=== PATIENT | male | born 1945 | race Two or more races ===

== ENCOUNTER 2023-09-07 11:44 | Emergency (ER) | payer OTHER ==
[~2023-09-07] VITALS: Ht 177.8 cm; Wt 75.7 kg
[2023-09-07 12:20] VITALS: TEMP 97.6
[2023-09-07 13:35] LABS: BASOPHILS # (AUTO) 0.1 K/uL (0.0-0.2); BASOPHILS % (AUTO) 0.8 % (0.0-2.0); EOSINOPHILS # (AUTO) 0.1 K/uL (0.0-0.7); EOSINOPHILS % (AUTO) 1.2 % (0.0-6.0); HEMATOCRIT 28 % (39-51); HEMOGLOBIN 9.7 g/dL (13.5-17.5); LYMPHOCYTES # (AUTO) 0.8 K/uL (0.8-4.8); LYMPHOCYTES % (AUTO) 12.8 % (20.0-44.0); MEAN CORPUSCULAR HEMOGLOBIN 37 PG (26.0-33.0); MEAN CORPUSCULAR HGB CONC 35 g/dl (31.0-36.0); MEAN CORPUSCULAR VOLUME 105 fL (80-96); MONOCYTES # (AUTO) 0.3 K/uL (0.1-1.30); MONOCYTES % (AUTO) 5.1 % (2.0-12.0); NEUTROPHILS % (AUTO) 80.1 % (43.0-81.0); PLATELET COUNT (AUTO) 243 K/uL (150-450); RED BLOOD CELL COUNT(AUTO) 2.66 MIL/uL (4.5-6.0); RED CELL DISTRIBUTION WIDTH 13.8 % (11.5-15.0); WHITE BLOOD COUNT (AUTO) 6.3 K/uL (4.3-11.0)
[2023-09-07 14:00] LABS: APPEARANCE,URINE Clear (CLEAR); BILIRUBIN,URINE SMALL (NEGATIVE); BLOOD, URINE Trace-intact Ery/uL (NEGATIVE); COLOR,URINE YELLOW (YELLOW); KETONES,URINE 15 mg/dL (NEGATIVE); LEUKOCYTE ESTERASE ,URINE Negative (NEGATIVE); NITRITE, URINE Negative (NEGATIVE); PROTEIN,URINE Negative (NEGATIVE); UGLUCOSE Negative (NEGATIVE); UROBILINOGEN,URINE 0.2 EU/dL (0.2)
[2023-09-07 14:02] LABS: CALCIUM, SERUM 9.1 mg/dL (8.5-10.1); CARBON DIOXIDE 28 mmol/L (21-32); CHLORIDE 106 mmol/L (98-107); CREATININE 0.9 mg/dL (0.6-1.3); GLUCOSE 97 mg/dL (74-106); SODIUM SERUM 142 mmol/L (136-145); UREA NITROGEN, BLOOD 22 mg/dL (7-18)
[2023-09-07 14:09] LABS: ALANINE AMINOTRANSFERASE 15 U/L (12-78); ALBUMIN 3.9 g/dL (3.4-5.0); ALKALINE PHOSPHATASE 39 U/L (46-116); ASPARTATE AMINOTRANSFERASE 18 U/L (15-37); BILIRUBIN,DIRECT 0.2 mg/dL (0.0-0.2); BILIRUBIN,TOTAL 0.8 mg/dL (0.2-1.0); LIPASE 50 U/L (16-77); TOTAL PROTEIN, SERUM 7.1 g/dL (6.4-8.2)
[2023-09-07 14:18] LABS: ADD URINE CULTURE NO; BACTERIA,URINE Few /HPF (None Seen); SQUAMOUS EPITHELIAL CELL,UR Few /HPF (None Seen); WBC,URINE 0-2 /HPF (0-3)
[2023-09-07 14:19] LABS: CALCIUM OXALATE CRYSTALS,UR Few /HPF (None Seen); URINE AMORPHOUS URATE Few /HPF (None Seen)
[2023-09-07 14:20] LABS: HYALINE CASTS, URINE Moderate /LPF (None Seen); MUCUS,URINE Moderate /LPF (None Seen)
[2023-09-07] MEDS ORDERED: CT SWABBABLE VALVE TRANS SET 1 EA INFUS.SET MC ONE (14:27)
[2023-09-07] MEDS ORDERED: IOHEXOL-300 100 ML VIAL IV ONE (14:27)
[2023-09-07] MEDS ORDERED: IV NS 0.9% 250 ML IV ONE (14:27)
[2023-09-07] MEDS: IV NS 0.9% 1,000 ML BAG IV ONE (14:33)
[2023-09-07 16:34] VITALS: BP 138/71; O2SAT 99
== END 2023-09-07 16:36 | disposition home or self-care (01) ==
LOC: ER 12:20
DX: R10.31 Right lower quadrant pain (principal); Z85.46 Personal history of malignant neoplasm of prostate
CPT/HCPCS: 99285; 74177; 96360; 85025; 80048; 83690; 80076; 81001; 36415; J7030; J7050; Q9967